=== PATIENT | female | born 1945 | race Caucasian/White ===

== ENCOUNTER 2016-11-22 23:11 | Emergency (ER) | payer MEDICARE, OTHER ==
[~2016-11-22] VITALS: Ht 157.5 cm; Wt 61.2 kg
--- NOTE | 2016-11-22 23:28 | NUR ---
SPOKE WITH AND PT.DESPITE INITIAL REPORT THEY TOLD ME THAT PT DID NOT FALL.BUT CONTINUES TO HAVE DIFFICULTY RAISING ARM.NEITHER PT NOR RECALL ANY INJURY.
[2016-11-22] MEDS ORDERED: DONE10TA44 PO (23:42)
[2016-11-22] MEDS ORDERED: SERT50TA PO (23:42)
--- NOTE | 2016-11-23 00:45 | NUR ---
Patient discharged to home in stable conditon. Written and verbal after care instructions given. Patient verbalizes understanding of instructions.
--- NOTE | 2016-11-23 00:45 | NUR ---
Patient discharged to home in stable conditon. Written and verbal after care instructions given. Patient verbalizes understanding of instructions.
[2016-11-23 01:06] VITALS: BP 131/65
== END 2016-11-23 00:45 | disposition home or self-care (01) ==
LOC: ER 23:11
DX: M77.9 Enthesopathy, unspecified (principal); M75.32 Calcific tendinitis of left shoulder; F32.9 Major depressive disorder, single episode, unspecified; F03.90 Unspecified dementia, unspecified severity, without behavioral disturbance, psychotic disturbance, mood disturbance, and anxiety
CPT/HCPCS: 73030; 93005; A4663